=== PATIENT | female | born 2000 | race Two or more races ===

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

== ENCOUNTER 2020-03-10 14:39 | Emergency (ER) | payer MEDICAID ==
[~2020-03-10] VITALS: Ht 162.6 cm; Wt 93.4 kg
[2020-03-10 14:47] VITALS: BP 117/77
[2020-03-10] MEDS ORDERED: LIDOCAINE 1% HCL (LOCAL ANESTH.) INJ 20ML MDV IJ ONE (15:15)
== END 2020-03-10 15:54 | disposition home or self-care (01) ==
LOC: ER 14:39
DX: L05.01 Pilonidal cyst with abscess (principal)
CPT/HCPCS: 10080; 99283; C1887; J2001; 10060

== ENCOUNTER → 2020-03-12 | Emergency (ER) | payer MEDICAID ==
[~2020-03-12] VITALS: Ht 162.6 cm; Wt 94.3 kg
[2020-03-12 16:32] VITALS: BP 124/72
== END | disposition home or self-care (01) ==
LOC: ER 14:51
DX: Z48.00 Encounter for change or removal of nonsurgical wound dressing (principal)